=== PATIENT | female | born 1955 | race American Indian/Alaskan Native ===

== ENCOUNTER 2017-06-05 11:24 | Emergency (ER) | payer OTHER ==
[2017-06-05 11:34] VITALS: BP 130/65
--- NOTE | 2017-06-05 11:52 | Emergency Department Report ---
ED Lower Extremity HPI - General Chief Complaint: Extremity Injury, Lower Stated Complaint: r ankle/foot pain sp fall; l knee abrasion Time Seen by Provider: 06/05/17 11:52 Source: patient, family Mode of arrival: Wheelchair Limitations: No Limitations - History of Present Illness MD Complaint: knee injury (abrasion) Injury: Knee: Left, Ankle: Right Type of Injury: other (fall) Place: home Severity: mild Improves With: nothing Worsens With: movement Context: fall - Related Data Previous Rx's Medication Instructions Recorded Last Taken Type traMADol [Ultram] 50 mg PO Q6HR PRN #12 tablet 06/05/17 Unknown Rx Allergies Allergy/AdvReac Type Severity Reaction Status Date / Time nickel Allergy Rash Verified 06/05/17 11:34 Penicillins Allergy Shortness Verified 06/05/17 11:34 of Breath ED Review of Systems ROS: Stated complaint: FALL,RIGHT FOOT INJURY Other details as noted in HPI Comment: All other systems reviewed and negative Musculoskeletal: other (r ankle pain and l knee abrasion) ED Past Medical Hx - Past Medical History Previous Medical History?: No Additional medical history: glaucoma - Surgical History Additional Surgical History: ,D and C - Family History Family history: no significant - Social History Smoking Status: Never Smoker Substance Use Type: None - Medications Home Medications: Home Medications Medication Instructions Recorded Confirmed Last Taken Type traMADol [Ultram] 50 mg PO Q6HR PRN #12 tablet 06/05/17 Unknown Rx ED Physical Exam - General Limitations: No Limitations General appearance: alert - Eye Eye exam: Present: PERRL - ENT ENT exam: Present: mucous membranes moist - Neck Neck exam: Present: normal inspection - Respiratory Respiratory exam: Present: normal lung sounds bilaterally - Cardiovascular Cardiovascular Exam: Present: regular rate - GI/Abdominal GI/Abdominal exam: Present: soft - Rectal Rectal exam: Present: deferred - Extremities Exam Extremities exam: Present: normal capillary refill - Expanded Lower Extremity Exam Right Upper Leg exam: Present: normal inspection Knee exam: Present: abrasion (l knee) Lower Leg exam: Present: normal inspection Ankle exam: Present: tenderness, swelling (generalized but more lateral). Absent: abrasion, laceration, ecchymosis, deformity, crepidus, dislocation, erythema, anterior draw sign Foot/Toe exam: Present: normal inspection Neuro vascular tendon exam: Present: no vascular compromise - Back Exam Back exam: Present: normal inspection - Neurological Exam Neurological exam: Present: alert, oriented X3 - Psychiatric Psychiatric exam: Present: normal affect, normal mood - Skin Skin exam: Present: warm, dry, intact ED Course Vital Signs 06/05/17 11:28 Temperature 98 F Pulse Rate 46 L Respiratory 18 Rate Blood Pressure 130/65 O2 Sat by Pulse 100 Oximetry - Reevaluation(s) Reevaluation #1: 06/05/17 13:31 to er sp fall she everted her r ankle then fell to l knee abrasion l knee gen swelling r ankle more medial on reexam co pain w ambulation xray noted not ideal crutch candidate and discussed with pt fam with her will amanda/crutch and have follow up w ortho ED Lower Extremity MDM - Radiology Data Radiology results: image reviewed interpreted by me: arthritic Critical care attestation.: If time is entered above; I have spent that time in minutes in the direct care of this critically ill patient, excluding procedure time. ED Disposition Clinical Impression: Abrasion, knee, Ankle sprain, Fall Disposition: TO HOME OR SELFCARE Is pt being admited?: No Does the pt Need Aspirin: No Condition: Stable Instructions: Ankle Sprain (ED), Osteoarthritis (ED) Additional Instructions: ice rest elevate keep abrasion clean and dry crutches safely as discussed see ortho Wednesday Referrals: PRIMARY CARE, [Primary Care Provider] - 3-5 Days JENNA HAMM MD [Staff Physician] - 3-5 Days Time of Disposition: 13:12
[2017-06-05] MEDS ORDERED: TRIPLE ANTIBIOTIC TP ONE (12:31)
[2017-06-05] MEDS ORDERED: BOOSTRIX IM ONE (12:49)
--- NOTE | 2017-06-05 13:21 | XRay Report ---
XRAY RIGHT ANKLE THREE VIEWS: 06/05/17 11:24:00 CLINICAL: Injury and pain. FINDINGS: The ankle mortise is intact.No fracture or dislocation. Mild osteopenia. Moderate medial and lateral soft tissue swelling. No soft tissue air or foreign body. A prominent Achilles spur. Degenerative changes at the talonavicular joint. IMPRESSION: Soft tissue injury.
--- NOTE | 2017-06-05 13:24 | XRay Report ---
RIGHT FOOT THREE VIEWS: 06/05/17 11:35:00 CLINICAL: Pain. FINDINGS: Comminuted impacted and mildly displaced fracture of the distal third metatarsal. No callus. Mild hallux valgus deformity and mild arthritis at the first MTP joint. IMPRESSION: An acute traumatic mildly displaced closed fracture of the distal third metatarsal.
[2017-06-05] MEDS ORDERED: ULTRAM PO ONE (13:28)
== END 2017-06-05 14:25 | disposition home or self-care (01) ==
LOC: ED 11:24
DX: S93.401A Sprain of unspecified ligament of right ankle, initial encounter (principal); S80.212A Abrasion, left knee, initial encounter; Z88.0 Allergy status to penicillin; Z88.8 Allergy status to other drugs, medicaments and biological substances; W18.30XA Fall on same level, unspecified, initial encounter; Y93.89 Activity, other specified; Y92.89 Other specified places as the place of occurrence of the external cause; Y99.8 Other external cause status
CPT/HCPCS: 82962; 90471; 90715; 99284; A6250